=== PATIENT | male | born 1980 | race Caucasian/White ===

== ENCOUNTER 2019-03-31 13:56 | Emergency (ER) | payer BC, OTHER ==
[2019-03-31] MEDS ORDERED: NORMAL SALINE 1000 ML 1,000 ML IV ONE ×2 (14:00→14:03)
[2019-03-31] MEDS ORDERED: NORMAL SALINE 250 ML IV PRN (14:03)
[2019-03-31] MEDS ORDERED: PANTOPRAZOLE SODIUM 40 MG VIAL IV ONE (14:05)
[2019-03-31] MEDS ORDERED: PANTOPRAZOLE SODIUM 40 MG VIAL IV PRN (14:08)
[2019-03-31 14:23] LABS: ABSOLUTE BASOPHILS # (AUTO) 0.1 10^3/uL (0.0-0.2); ABSOLUTE EOSINOPHILS # (AUTO) 0.1 10^3/uL (0.0-0.6); ABSOLUTE LYMPHOCYTES (AUTO) 3.5 10^3/uL (0.5-4.7); ABSOLUTE MONOCYTES (AUTO) 1.5 10^3/uL (0.1-1.4); ABSOLUTE NEUT (AUTO) 12.4 10^3/uL (1.7-8.2); BASOPHILS % (AUTO) 0.3 % (0-2); EOSINOPHILS % (AUTO) 0.6 % (0-6); HEMATOCRIT 39.6 % (37.9-51.0); HEMOGLOBIN 13.5 g/dL (13.5-17.0); LYMPHOCYTES % (AUTO) 19.7 % (13-45); MEAN CORPUSCULAR HEMOGLOBIN 32.1 pg (27.0-33.4); MEAN CORPUSCULAR VOLUME 95 fl (80-97); MONOCYTES % (AUTO) 8.8 % (3-13); PLATELET COUNT 340 10^3/uL (150-450); RED BLOOD COUNT 4.19 10^6/uL (4.35-5.55); SEGMENTED NEUTROPHILS % (AUTO) 70.6 % (42-78); TOTAL CELLS COUNTED % (AUTO) 100 %; WHITE BLOOD COUNT 17.5 10^3/uL (4.0-10.5)
[2019-03-31 14:37] LABS: ALKALINE PHOSPHATASE 31 U/L (38-126); ANION GAP 15 (5-19); ASPARTATE AMINO TRANSFERASE 24 U/L (17-59); BILIRUBIN,TOTAL 0.8 mg/dL (0.2-1.3); BLOOD UREA NITROGEN 46 mg/dL (7-20); CALCIUM 9.5 mg/dL (8.4-10.2); CARBON DIOXIDE 20 mmol/L (22-30); CHLORIDE 101 mmol/L (98-107); GLUCOSE 155 mg/dL (75-110); INTERNATIONAL RATION (INR) 1.09; POTASSIUM 4.4 mmol/L (3.6-5.0); PROTHROMBIN TIME 14.1 SEC (11.4-15.4); TOTAL PROTEIN 6.5 g/dL (6.3-8.2)
[2019-03-31 14:38] LABS: PARTIAL THROMBOPLASTIN TIME 26.5 SEC (23.5-35.8)
--- NOTE | 2019-03-31 14:53 | RADIOLOGY REPORT (SQ) ---
EXAM DESCRIPTION: CHEST SINGLE VIEW COMPLETED DATE/TIME: 03/31/2019 2:18 pm REASON FOR STUDY: hematemesis COMPARISON: None. EXAM PARAMETERS: NUMBER OF VIEWS: One view. TECHNIQUE: Single frontal radiographic view of the chest acquired. RADIATION DOSE: NA LIMITATIONS: None. FINDINGS: LUNGS AND PLEURA: No acute infiltrates or effusion MEDIASTINUM AND HILAR STRUCTURES: No masses. Contour normal. HEART AND VASCULAR STRUCTURES: Normal heart and pulmonary vasculature. BONES: No acute findings. HARDWARE: None in the chest. OTHER: No other significant finding. IMPRESSION: NO ACUTE DISEASE. TECHNICAL DOCUMENTATION: JOB ID: [id number] 2010 [employer]- All Rights Reserved Reading location - IP/workstation name: [email or web address]
--- NOTE | 2019-03-31 14:55 | ER Document Report ---
ED GI/ - General Chief Complaint: Vomiting Stated Complaint: VOMITING BLOOD Time Seen by Provider: 03/31/19 13:58 Notes: 38-year-old male with past medical history of alcoholism brought in by EMS for hematemesis. I initially went to the bedside to assess patient as he was unstable and hypotensive with systolic in the 70s and tachycardic in the 120s. Patient was alert and oriented to person place and time. Patient with pallor and diaphoretic. Patient did have blood over his shirt. Patient states that he had copious bright red blood last night and decided with his that it happened again this morning he would seek treatment. It then happened again prior to arrival prompting him to come in. Patient states his last drink was last night, he drinks 4-5 beers a day, used to drink heavy liquor. Normal saline 2 L immediately hung and patient started to respond to fluid boluses and he is currently stable at blood pressure of 108/72 and heart rate of 105. Protonix 80 mg IV bolus ordered followed by a continuous drip Protonix 8 mg/h for 10 hours. Patient denies abdominal pain, denies nausea or vomiting, denies weakness. - Related Data Allergies/Adverse Reactions: No Known Allergies Allergy (Unverified 03/31/19 15:36) Home Medications: Hydrochlorothiazide and Lisinopril Past Medical History - Social History Smoking Status: Unknown if Ever Smoked Frequency of alcohol use: Heavy Family History: None Patient has suicidal ideation: No Patient has homicidal ideation: No Review of Systems - Review of Systems Constitutional: No symptoms reported EENT: No symptoms reported Cardiovascular: See HPI Respiratory: See HPI Gastrointestinal: See HPI Genitourinary: No symptoms reported Male Genitourinary: No symptoms reported Musculoskeletal: No symptoms reported Skin: No symptoms reported Hematologic/Lymphatic: No symptoms reported Neurological/Psychological: See HPI Physical Exam - Vital signs Vitals: Resp Pulse Ox 15 100 03/31/19 14:00 03/31/19 14:00 - Notes Notes: PHYSICAL EXAMINATION: Reviewed vital signs and charting by RN GENERAL: Alert, interacts well. Acute distress. HEAD: Normocephalic, atraumatic. EYES: Pupils equal and round. Extraocular movements intact. ENT: Oral mucosa moist, tongue midline. NECK: Full range of motion. Trachea midline. LUNGS: Clear to auscultation bilaterally, no wheezes, rales, or rhonchi. No respiratory distress. HEART: Tachycardia and healer rhythm. No murmur ABDOMEN: soft, non-tender. No distention. Bowel sounds present EXTREMITIES: Moves all 4 extremities spontaneously. No edema, No cyanosis. PSYCH: Normal affect, normal mood. SKIN: Pallor with diaphoresis Course - Re-evaluation Re-evalutation: 03/31/19 15:00 Patient initially unstable and hypotensive with systolic in the 70s and tachycardic in the 120s. Patient was alert and oriented to person place and time. Patient with pallor and diaphoretic. Normal saline 2 L immediately hung and patient started to respond to fluid boluses and he is currently stable at blood pressure of 108/72 and heart rate of 105. Protonix 80 mg IV bolus ordered followed by a continuous drip Protonix 8 mg/h for 10 hours. Patient denies abdominal pain, denies nausea or vomiting, denies weakness. Remarkably, hemoglobin was 13.5, coags were normal, no significant lab derangements at all. EKG showed a normal sinus rhythm with a rate of 98, no axis deviation, no ST segment elevation or ST segment depressions, QTC 460. Serial blood pressure measurements have remained stable. I called Dr. Powell, hospitalist, who admitted the patient to the [facility] for full admission for upper GI bleed with the surgicalist as a consult. 03/31/19 15:30 Patient had another episode of hematemesis looked to be approximately 125 mL. I gave the patient Zofran 8 mg IV once. I called the surgeon on-call, Dr. Mix, who said that he would not be able to manage the patient due to the potential the patient might need banding for an esophageal varices. I then called the hospitalist back and informed him that we will ultimately initiate a transfer. I called [facility] and am awaiting callback. 03/31/19 16:[address] Jimenez, hospitalist at [facility], who accepted the patient for transfer. She requested that if there is a change in his status and he has another bout of hematemesis that we call back so they can upgrade the bed. - Vital Signs Vital signs: Temp Pulse Resp BP Pulse Ox 99.3 F 95 18 109/74 100 03/31/19 16:12 03/31/19 15:57 03/31/19 18:20 03/31/19 18:20 03/31/19 18:20 - Laboratory Result Diagrams: 03/31/19 14:00 03/31/19 14:00 Laboratory results interpreted by me: 03/31/19 03/31/19 03/31/19 14:00 14:00 14:00 WBC 17.5 H RBC 4.19 L Absolute Neuts (auto) 12.4 H Absolute Monos (auto) 1.5 H Sodium 135.7 L Carbon Dioxide 20 L BUN 46 H Glucose 155 H Alkaline Phosphatase 31 L Crossmatch See Detail Critical Care Note - Critical Care Note Total time excluding time spent on procedures (mins): 35 Comments: Hypotension, tachycardia, acute GI bleed Discharge - Discharge Clinical Impression: Upper GI bleed, Tachycardia Hematemesis Qualifiers: Nausea presence: unspecified Qualified Code(s): K92.0 - Hematemesis Hypotension Qualifiers: Hypotension type: unspecified hypotension type Qualified Code(s): I95.9 - Hypotension, unspecified Condition: Stable Disposition: [facility]
[2019-03-31] MEDS ORDERED: ONDANSETRON HCL INJ/PF 4 MG/2 ML SDV IV ONE (15:15)
[2019-03-31 19:49] VITALS: BP 111/76
--- NOTE | 2019-03-31 21:35 | EKG REPORT ---
SEVERITY:- NORMAL ECG - SINUS RHYTHM : Confirmed by: Manuel Iniguez 31-Mar-2019 21:34:31
== END 2019-03-31 19:56 | disposition short-term general hospital (02) ==
LOC: ER 13:56 → EH 15:26 → UNDOADMIN 15:26 → EH 19:55
DX: K92.0 Hematemesis (principal); K92.2 Gastrointestinal hemorrhage, unspecified; R00.0 Tachycardia, unspecified; I95.9 Hypotension, unspecified
CPT/HCPCS: 93005; 86900; 86901; 36415; 36430; 86850; 82962; 83690; 85025; 85610; 85730; 80053; 86920; 71045; 93010; P9016; C9113; J2405; J7030; J7050